=== PATIENT | male | born 1990 | race Two or more races ===

== ENCOUNTER 2025-01-21 20:51 | Emergency (ER) | payer SELFPAY ==
[~2025-01-21] VITALS: Ht 175.3 cm; Wt 118.2 kg
[2025-01-21 20:58] VITALS: BP 135/78; PULSE 105; RESP 18; TEMP 98.3; O2SAT 100
== END 2025-01-22 02:02 | disposition home or self-care (01) ==
LOC: EMS 20:52
DX: F10.129 Alcohol abuse with intoxication, unspecified (principal); Y90.6 Blood alcohol level of 120-199 mg/100 ml
CPT/HCPCS: 99283

== ENCOUNTER 2025-01-22 20:37 | Emergency (ER) | payer MEDICAID ==
[~2025-01-22] VITALS: Ht 170.2 cm; Wt 115.0 kg
[2025-01-22 21:38] LABS: BASOPHILS % (AUTO) 4.4 % (0.0-2.0); EOSINOPHILS % (AUTO) 1.6 % (1.0-6.0); HEMATOCRIT 42.7 % (41-53); HEMOGLOBIN 14.2 g/dL (13.5-17.5); LYMPHOCYTES # (AUTO) 1.4 K/uL (1.0-4.8); LYMPHOCYTES % (AUTO) 26.4 % (22.0-44.0); MEAN CORPUSCULAR HEMOGLOBIN 32.9 pg (26.0-34.0); MEAN CORPUSCULAR HGB CONC 33.3 G/dL (31.0-37.0); MEAN CORPUSCULAR VOLUME 99 fL (80-100); MONOCYTES # (AUTO) 0.4 K/uL (0.1-1.0); MONOCYTES % (AUTO) 8.2 % (2.0-9.0); NEUTROPHILS # (AUTO) 3.2 K/uL (1.8-7.7); NEUTROPHILS % (AUTO) 59.4 % (40.0-70.0); PLATELET COUNT (AUTO) 239 K/uL (150-450); RED BLOOD CELL COUNT(AUTO) 4.32 MIL/uL (4.50-5.90); WHITE BLOOD COUNT (AUTO) 5.3 K/uL (4.5-11.0)
[2025-01-22 21:50] LABS: ANION GAP 11 mmol/L (8-16); CALCIUM, TOTAL 8.5 mg/dL (8.8-10.5); CARBON DIOXIDE 30 mmol/L (22-29); CHLORIDE 105 mmol/L (98-107); CREATININE 0.88 mg/dL (0.60-1.30); GLOMERULAR FILTR. RATE CALC > 60 mL/min (>60); GLUCOSE,RANDOM 109 mg/dL (70-110); POTASSIUM 4.2 mmol/L (3.5-5.1); SODIUM SERUM 146 mmol/L (136-145); UREA NITROGEN, BLOOD 7 mg/dL (7-18)
[2025-01-22 22:04] LABS: ALCOHOL, BLOOD (SERUM) 482 mg/dL (0-10)
[2025-01-23 05:37] VITALS: BP 129/70; PULSE 71; RESP 16; TEMP 97.3; O2SAT 100
== END 2025-01-23 05:38 | disposition home or self-care (01) ==
LOC: EMS 20:37
DX: F10.129 Alcohol abuse with intoxication, unspecified (principal); R44.0 Auditory hallucinations; Z65.3 Problems related to other legal circumstances; Y90.8 Blood alcohol level of 240 mg/100 ml or more
CPT/HCPCS: 99285; 80048; 85025; 36415; G0480; 99283